=== PATIENT | male | born 1955 | race Hispanic/Latino ===

== ENCOUNTER 2019-07-02 17:29 | Observation (INO) | payer MEDICARE, OTHER ==
[~2019-07-02] VITALS: Ht 180.3 cm; Wt 97.7 kg
--- OUTSIDE RECORDS SUMMARY | 2019-07-02 17:32 | XMS REPORT ---
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 Allergies, Adverse Reactions, Alerts This patient has no known allergies or adverse reactions. Medications This patient has no known medications. Encounters Start Date/Time End Date/Time Encounter Type Admission Type Attending [facility] Facility Care Department Encounter ID 2019-01-05 00:00:00 2019-01-05 00:00:00 Outpatient [facility] [id number] 2018-10-17 00:00:00 2018-10-17 00:00:00 Outpatient [facility] [id number] 2018-09-14 00:00:00 2018-09-14 00:00:00 Outpatient [facility] [id number] 2018-09-08 07:01:19 2018-09-08 07:01:19 Outpatient [facility] [id number] 2018-07-04 06:36:28 2018-07-04 06:36:28 Outpatient [facility] [id number] 2018-05-05 06:51:53 2018-05-05 06:51:53 Outpatient [facility] [id number] 2018-04-11 00:00:00 2018-04-11 00:00:00 Outpatient [facility] [id number] 2018-01-06 06:49:42 2018-01-06 06:49:42 Outpatient [facility] [id number] 2018-01-06 00:00:00 2018-01-06 00:00:00 Outpatient [facility] [id number] 2018-01-04 00:00:00 2018-01-04 00:00:00 Outpatient [facility] [id number] 2017-12-13 08:26:22 2017-12-13 08:26:22 Outpatient [facility] [id number] 2017-10-10 08:29:06 2017-10-10 08:29:06 Outpatient [facility] [id number] 2017-10-03 15:24:14 2017-10-03 15:24:14 Outpatient [facility] [id number] 2017-09-30 15:13:33 2017-09-30 15:13:33 Outpatient [facility] [id number] 2017-09-09 06:50:09 2017-09-09 06:50:09 Outpatient [facility] [id number] 2017-08-02 14:38:59 2017-08-02 14:38:59 Outpatient [facility] [id number] 2017-07-14 00:00:00 2017-07-14 00:00:00 Outpatient [facility] [id number] 2017-07-07 15:58:41 2017-07-07 15:58:41 Outpatient [facility] [id number] 2017-07-07 15:27:50 2017-07-07 15:27:50 Outpatient [facility] [id number] 2017-07-07 13:46:08 2017-07-07 13:46:08 Outpatient [facility] [id number] 2017-05-06 07:14:23 2017-05-06 07:14:23 Outpatient [facility] [id number] 2017-02-18 00:00:00 2017-02-18 00:00:00 Outpatient [facility] [id number] 2017-01-07 07:08:27 2017-01-07 07:08:27 Outpatient [facility] [id number] 2016-11-19 00:00:00 2016-11-19 00:00:00 Outpatient [facility] [id number] 2016-11-12 00:00:00 2016-11-12 00:00:00 Outpatient [facility] [id number] 2016-10-08 00:00:00 2016-10-08 00:00:00 Outpatient [facility] [id number] 2016-10-01 15:17:45 2016-10-01 15:17:45 Outpatient [facility] [id number] 2016-09-14 07:05:02 2016-09-14 07:05:02 Outpatient [facility] [id number] 2016-08-17 08:46:05 2016-08-17 08:46:05 Outpatient [facility] [id number] 2016-08-17 08:03:12 2016-08-17 08:03:12 Outpatient [facility] [id number] 2016-08-12 00:00:00 2016-08-12 00:00:00 Outpatient [facility] [id number] 2016-08-04 00:00:00 2016-08-04 00:00:00 Outpatient [facility] [id number] 2016-07-26 07:04:13 2016-07-26 07:04:13 Outpatient [facility] [id number] 2016-07-20 00:00:00 2016-07-20 00:00:00 Outpatient [facility] [id number]
[2019-07-02 18:15] LABS: BASOPHILS # (AUTO) 0.1 (0.0-0.1); BASOPHILS % 0.5 % (0.0-1.0); EOSINOPHILS # (AUTO) 0.2 (0.0-0.4); EOSINOPHILS % 1.7 % (0.0-6.0); HEMOGLOBIN 12.4 g/dL (14.0-18.0); LYMPHOCYTES % 15.9 % (18.0-39.1); MEAN CORPUSCULAR HEMOGLOBIN 31.6 pg (28-32); MEAN CORPUSCULAR HGB CONC 34.4 g/dL (31-35); MEAN CORPUSCULAR VOLUME 91.8 fL (81-99); MONOCYTES % 7.4 % (4.4-11.3); NEUTROPHILS # (AUTO) 9.6 (2.1-6.9); NEUTROPHILS % 74.2 % (38.7-80.0); PLATELET COUNT 248 x10e3/uL (140-360); RED BLOOD COUNT 3.92 x10e6/uL (4.3-5.7); RED CELL DISTRIBUTION WIDTH 12.7 % (11.7-14.4)
[2019-07-02 18:25] LABS: INR 0.92; PROTHROMBIN TIME 12.9 seconds (11.9-14.5)
[2019-07-02 18:35] LABS: ALANINE AMINOTRANSFERASE 29 IU/L (0-55); ALBUMIN 3.8 g/dL (3.5-5.0); ALBUMIN/GLOBULIN RATIO 1.1 (0.8-2.0); ALKALINE PHOSPHATASE 107 IU/L (40-150); ANION GAP 11.8 mmol/L (8-16); BLOOD UREA NITROGEN 25 mg/dL (7-26); BUN/CREATININE RATIO 27 (6-25); CALCIUM 9.2 mg/dL (8.4-10.2); CARBON DIOXIDE 24 mmol/L (22-29); CHLORIDE 108 mmol/L (98-107); CREATININE, SERUM 0.94 mg/dL (0.72-1.25); EST GLOMERULAR FILTRATION RATE > 60 ML/MIN (60-); GLUCOSE 99 mg/dL (74-118); POTASSIUM 3.8 mmol/L (3.5-5.1); SODIUM 140 mmol/L (136-145)
[2019-07-02 18:40] LABS: BILIRUBIN,URINE NEGATIVE (NEGATIVE); CLARITY,URINE SL CLOUDY (CLEAR); COLOR,URINE YELLOW (YELLOW); KETONES,URINE NEGATIVE (NEGATIVE); LEUKOCYTE ESTERASE ,URINE NEGATIVE (NEGATIVE); NITRITE,URINE NEGATIVE (NEGATIVE); PROTEIN,URINE DIPSTICK NEGATIVE (NEGATIVE); URINE UROBILINOGEN 0.2 mg/dL (0.2 - 1)
[2019-07-02 18:52] LABS: BACTERIA,URINE RARE /HPF; MUCUS,URINE RARE (RARE); WBC,URINE (MAN) 0-5 /HPF (0-5)
[2019-07-02] MEDS ORDERED: PANTOPRAZOLE 40 MG 10ML VIAL IV STA (19:11)
[2019-07-02] MEDS ORDERED: SODIUM CHLORIDE 0.9% 1000ML 1,000 ML IV STA (19:11)
[2019-07-02] MEDS ORDERED: MIDAZOLAM HCL 2 MG/2 ML VIAL ONE (19:26)
[2019-07-02] MEDS ORDERED: FENTANYL CITRATE/PF 100MCG/2 ML INJ ONE (19:26)
[2019-07-02] MEDS ORDERED: SODIUM CHLORIDE 0.9% 1000ML 1,000 ML IV ONE (19:30)
[2019-07-02] MEDS ORDERED: DEXTROSE 50% SYRINGE 50 ML IV PRN (19:30)
[2019-07-02] MEDS: INSULIN REGULAR, HUMAN 100 UNIT/1 ML 3ML VIAL SQ SCH (21:00)
[2019-07-02 21:30] VITALS: BP 157/77
[2019-07-02 21:31] VITALS: BP 157/77
[2019-07-02 22:00] VITALS: BP 157/77
[2019-07-03] VITALS (8 sets, daily range): BP systolic 103–133; BP diastolic 57–76
[2019-07-03] MEDS ORDERED: LISINOPRIL2.5 MG PO (05:05)
[2019-07-03] MEDS ORDERED: ALLOPURINOL100 MG PO (05:05)
[2019-07-03] MEDS ORDERED: CLOPIDOGREL75 MG PO (05:05)
[2019-07-03] MEDS ORDERED: METOPROLOL TART25 MG PO (05:05)
[2019-07-03] MEDS ORDERED: PROVENTIL HFA6.7 GM INH (05:05)
[2019-07-03] MEDS ORDERED: ASPIRIN EC81 MG PO (05:05)
[2019-07-03] MEDS ORDERED: CETIRIZINE HCL10 MG (05:05)
[2019-07-03] MEDS ORDERED: ZETONNA6.1 GM (05:05)
[2019-07-03 05:22] LABS: HEMATOCRIT 33.7 % (38.2-49.6); HEMOGLOBIN 11.4 g/dL (14.0-18.0)
[2019-07-03] MEDS: INSULIN REGULAR, HUMAN 100 UNIT/1 ML 3ML VIAL SQ SCH ×4 (07:30→21:00)
[2019-07-03] MEDS: PANTOPRAZOLE 40 MG 10ML VIAL IV SCH (08:29)
[2019-07-03] MEDS ORDERED: ALBUTEROL/IPRATROPIUM 3 ML NEB NEB PRN (08:30)
[2019-07-03] MEDS ORDERED: ALBUTEROL/IPRATROPIUM 3 ML NEB ONE (08:37)
[2019-07-03] MEDS ORDERED: ALBUTEROL SULFATE HFA 8GM INHALATION AEROSOL INH PRN (09:15)
[2019-07-03] MEDS ORDERED: PROPOFOL IV EMULSION 10 MG/ML 20 ML VIAL ONE (09:31)
[2019-07-03] MEDS ORDERED: LIDOCAINE HCL 2% LOCAL INJ 5 ML SDV VIAL INJ ONE (09:31)
--- NOTE | 2019-07-03 11:01 | Operative Report ---
DATE OF PROCEDURE: 07/03/2019 SURGEON: Segun Ayala MD PROCEDURE: EGD with biopsies. INDICATIONS FOR EGD: Anemia, history of melena. MEDICATIONS: The patient was done under MAC, please see anesthesiologist's note. PROCEDURE IN DETAIL: With the patient in the left lateral decubitus position a flexible fiberoptic Olympus gastroscope was introduced into the esophagus under direct visualization without any difficulty. There was some patchy erythema noted in distal esophagus. There was also a wider submucosal nodule approximately 3 mm in size that was biopsied. The scope was then advanced with ease into the stomach traversing a small hiatal hernia. Mucosa overlying the antrum and the body revealed some patchy erythema and [id number] edema, and biopsies were sent to stain for H pylori. The pylorus was of normal contour and shape. It was intubated with ease and the scope was advanced all the way to the second portion of the duodenum. The scope was then withdrawn slowly mucosa overlying the proximal second portion and duodenal bulb grossly appeared to be within normal limits. Biopsies were obtained to rule out sprue. The scope was then withdrawn back into the stomach and retroflexed and mucosa overlying the fundus appeared to be within normal limits. The previously described hiatal hernia was also noted in the retroflexed position. The scope was then straightened out, it was subsequently withdrawn. The patient tolerated the procedure well. IMPRESSION: 1. Distal esophagitis, mild. 2. Approximately 3 mm submucosal nodule, whitish in color, distal esophagus, biopsied. 3. Small hiatal hernia. 4. Gastritis, biopsied biopsies sent to stain for H pylori. 5. Rule out sprue. PLAN: Follow up histology. Initiate Protonix 40 mg one p.o. q.a.m. a.c. Findings do not necessarily explain the patient's anemia or history of melena. We will need a colonoscopy. Segun Ayala MD [facility] [place][id number] cc: Prabhakar Ayala MD
[2019-07-03 12:22] LABS: HEMATOCRIT 35.4 % (38.2-49.6); HEMOGLOBIN 11.9 g/dL (14.0-18.0)
[2019-07-03] MEDS ORDERED: BISACODYL 5 MG TAB EC PO ONE ×3 (13:00→15:00)
[2019-07-03] MEDS: METOPROLOL TARTRATE 25 MG TAB PO SCH (16:05)
[2019-07-03] MEDS: ALLOPURINOL 100 MG TAB PO SCH (16:05)
[2019-07-03 19:13] LABS: HEMATOCRIT 32.6 % (38.2-49.6); HEMOGLOBIN 10.9 g/dL (14.0-18.0)
[2019-07-03] MEDS ORDERED: MIDAZOLAM HCL 5MG/ML 2ML VIAL ONE (19:30)
[2019-07-03] MEDS ORDERED: CITRATE OF MAGNESIA 300ML BOTTLE PO ONE ×2 (20:00→23:00)
[2019-07-04] VITALS: BP 127/63
[2019-07-04 04:00] VITALS: BP 112/82
[2019-07-04 05:23] LABS: HEMATOCRIT 30.8 % (38.2-49.6); HEMOGLOBIN 10.6 g/dL (14.0-18.0)
[2019-07-04] MEDS: INSULIN REGULAR, HUMAN 100 UNIT/1 ML 3ML VIAL SQ SCH ×2 (07:30→11:30)
[2019-07-04 07:53] VITALS: BP 124/59
[2019-07-04 08:16] VITALS: BP 124/59
[2019-07-04] MEDS: ALLOPURINOL 100 MG TAB PO SCH (09:00)
[2019-07-04] MEDS ORDERED: LISINOPRIL 2.5 MG TAB PO SCH (09:00)
[2019-07-04] MEDS ORDERED: CICLESONIDE NS SCH (09:00)
[2019-07-04] MEDS: METOPROLOL TARTRATE 25 MG TAB PO SCH (09:00)
[2019-07-04] MEDS: PANTOPRAZOLE 40 MG 10ML VIAL IV SCH (09:47)
[2019-07-04 11:49] VITALS: BP 116/66
--- NOTE | 2019-07-04 12:16 | Operative Report ---
DATE OF PROCEDURE: 07/04/2019 SURGEON: Segun Ayala MD PROCEDURES: Colonoscopy with polypectomy and biopsies. INDICATIONS FOR COLONOSCOPY: History of melena, guaiac-positive stools. EGD findings did not explain the patient's melena or blood in stools. MEDICATIONS: The patient was done under MAC, please see anesthesiologist's note. PROCEDURE IN DETAIL: With the patient in the left lateral decubitus position, a flexible fiberoptic Olympus colonoscope was inserted into the rectum with ease and advanced all the way to the cecum. The scope was then withdrawn slowly, mucosa overlying the cecum appeared to be within normal limits. There was some scattered minute? pseudomembranous noted and multiple biopsies were obtained. There were some diverticular disease noted in the sigmoid colon. Three polyps were hot snared and one polyp was hot biopsied from the sigmoid colon. Three polyps were hot biopsied from the rectum. The scope was then retroflexed into the distal rectum and small internal hemorrhoids were noted, none of which was actively bleeding. The scope was then straightened out, it was subsequently withdrawn, and the patient tolerated the procedure well. IMPRESSION: 1. Rule out pseudomembranous colitis. 2. Sigmoid colon polyps x4, three snared and one hot biopsied. 3. Diverticulosis. 4. Rectal polyps x3, hot biopsied. 5. Internal hemorrhoids, none actively bleeding. PLAN: Follow up histology. Initiate high-fiber, low-fat diet. Initiate high-fiber supplement. The patient might benefit from a followup colonoscopy in 3 years. The patient will need a small bowel series and if negative, then a capsule endoscopy will be in order. Segun Ayala MD [facility] [place] /[id number] cc: Prabhakar Ayala MD
[2019-07-04] MEDS ORDERED: PROPOFOL IV EMULSION 10 MG/ML 20 ML VIAL ONE (19:52)
== END 2019-07-04 14:56 | disposition home or self-care (01) ==
LOC: ER 17:29 → ERHOLD 19:19 → MED/SURG2 20:45
DX: A04.72 Enterocolitis due to Clostridium difficile, not specified as recurrent (principal); K20.9 Esophagitis, unspecified; K44.9 Diaphragmatic hernia without obstruction or gangrene; K22.8 Other specified diseases of esophagus; K63.5 Polyp of colon; K57.31 Diverticulosis of large intestine without perforation or abscess with bleeding; K62.1 Rectal polyp; K64.8 Other hemorrhoids; K29.80 Duodenitis without bleeding; K29.50 Unspecified chronic gastritis without bleeding; I10 Essential (primary) hypertension; E11.9 Type 2 diabetes mellitus without complications; Z88.0 Allergy status to penicillin; Z83.3 Family history of diabetes mellitus; Z82.49 Family history of ischemic heart disease and other diseases of the circulatory system; I25.10 Atherosclerotic heart disease of native coronary artery without angina pectoris; Z95.0 Presence of cardiac pacemaker; Z79.01 Long term (current) use of anticoagulants; I49.9 Cardiac arrhythmia, unspecified
CPT/HCPCS: 36415; 43239; 45380; 45384; 80053; 81001; 82270; 82948; 85014; 85018; 85025; 85610; 85730; 87635; 88305; 88312; 93005; 94640; 99284; G0378; J2001; J2250; J3010; J7030